=== PATIENT | male | born 1945 | race Caucasian/White ===

== ENCOUNTER 2024-07-31 17:12 | Inpatient (IN) | payer OTHER, MEDICARE ==
[2024-07-31 18:19] VITALS: BMI 22.1
[2024-07-31] MEDS ORDERED: Ondansetron PF 4 MG/2 ML Vial IVP PRN (21:03)
[2024-07-31 22:08] LABS: Troponin I 0.082 ng/mL (< 0.028)
[2024-07-31] MEDS: Aspirin Chewable 81 MG TAB PO SCH (22:24)
[2024-07-31] MEDS: cefTRIAXone\\ROCEPHIN 1 GM in Sodium Chloride 0.9% 100 ML IVPB SCH (22:24)
[2024-07-31] MEDS: Sodium Chloride 0.9% 1,000 ML IV SCH (22:25)
[2024-07-31] MEDS: methylPREDNISolone Sod Succ 40 MG VIAL IVP SCH (22:26)
[2024-07-31] MEDS: Nicotine 14 MG PATCH TD SCH (22:26)
[2024-08-01] MEDS: Ipratropium/Albuterol 3 ML NEB NEB SCH (01:18)
[2024-08-01 01:34] LABS: Troponin I 0.082 ng/mL (< 0.028)
[2024-08-01 04:48] LABS: #Basophils Less than 0.03 10x3/uL (0.0-0.2); #Eosinophils Less than 0.03 10x3/uL (0.0-0.7); %Basophils 0.2 % (0.0-1.0); %Lymphocytes 8.7 % (21.0-51.0); %Monocytes 3.2 % (0.0-10.0); %Neutrophils 87.5 % (42.0-75.0); Hematocrit 36.8 % (42.0-52.0); Hemoglobin 12.5 g/dL (14.0-18.0); Mean Corpuscular Hemoglobin 32.1 pg (27.0-31.0); Mean Corpuscular Volume 94.4 fL (78.0-98.0); Mean Platelet Volume 10.2 fL (7.4-10.4); Platelet Count 129 10x3/uL (130-400); RBC Distribution Width 14.4 % (11.5-14.5)
[2024-08-01 05:13] LABS: Anion Gap 14 mmol/L (10-20); BUN (Urea Nitrogen) 17 mg/dL (8.4-25.7); Calc. Creatinine Clearance 47 mL/min (70-130); Calcium 7.9 mg/dL (7.8-10.44); Carbon Dioxide 19 mmol/L (23-31); Chloride 109 mmol/L (98-107); Estimated GFR 62; Glucose 185 mg/dL (83-110); Sodium 138 mmol/L (136-145)
[2024-08-01] MEDS: Enoxaparin 40 MG (0.4 mL) SYRINGE SC SCH (08:47)
[2024-08-01] MEDS: Famotidine 20 MG TAB PO SCH (08:48)
[2024-08-01] MEDS: Azithromycin 250 MG TAB PO SCH (08:48)
[2024-08-01] MEDS: Aspirin Chewable 81 MG TAB PO SCH (08:48)
[2024-08-01 14:16] VITALS: BMI 22.1
[2024-08-01] MEDS: Metoprolol Tartrate 25 MG TAB PO SCH (20:52)
[2024-08-01] MEDS: Atorvastatin Calcium 40 MG TAB PO SCH (20:52)
[2024-08-02] MEDS: Lisinopril 2.5 MG TAB PO SCH (08:24)
[2024-08-02 08:48] LABS: #Basophils Less than 0.03 10x3/uL (0.0-0.2); #Eosinophils Less than 0.03 10x3/uL (0.0-0.7); %Basophils 0.1 % (0.0-1.0); %Lymphocytes 3.1 % (21.0-51.0); %Monocytes 4.4 % (0.0-10.0); Hematocrit 39.1 % (42.0-52.0); Mean Corpuscular HGB CONC 33.2 g/dL (32.0-36.0); Mean Corpuscular Hemoglobin 31.3 pg (27.0-31.0); Mean Platelet Volume 10.9 fL (7.4-10.4); Platelet Count 155 10x3/uL (130-400); Red Blood Cell (RBC) Count 4.16 mill/uL (4.70-6.10)
[2024-08-02 09:10] LABS: Anion Gap 15 mmol/L (10-20); BUN (Urea Nitrogen) 19 mg/dL (8.4-25.7); Calc. Creatinine Clearance 52 mL/min (70-130); Calcium 8.5 mg/dL (7.8-10.44); Carbon Dioxide 22 mmol/L (23-31); Chloride 108 mmol/L (98-107); Cholesterol 133 mg/dl (< 200 Desired); Estimated GFR 71; Glucose 138 mg/dL (83-110); HDL Cholesterol 44 mg/dL (>60 Neg Risk); LDL Cholesterol, Calculated 72 mg/dL; Potassium 3.6 mmol/L (3.5-5.1); Sodium 141 mmol/L (136-145); Triglycerides 84 mg/dL (Less than 150)
[2024-08-02] MEDS: Ipratropium/Albuterol 3 ML NEB EZPAP PRN (11:47)
[2024-08-02] MEDS ORDERED: Sodium Chloride 0.9% 1,000 ML IV SCH (14:00)
[2024-08-02] MEDS ORDERED: Metoprolol Tartrate 25 MG TAB PO SCH (21:00)
[2024-08-02] MEDS: Atorvastatin Calcium 20 MG TAB PO SCH (21:19)
[2024-08-03 05:22] LABS: #Basophils Less than 0.03 10x3/uL (0.0-0.2); #Eosinophils Less than 0.03 10x3/uL (0.0-0.7); %Lymphocytes 2.9 % (21.0-51.0); %Monocytes 3.8 % (0.0-10.0); %Neutrophils 92.4 % (42.0-75.0); Hematocrit 36.2 % (42.0-52.0); Hemoglobin 12.2 g/dL (14.0-18.0); Mean Corpuscular HGB CONC 33.7 g/dL (32.0-36.0); Mean Corpuscular Hemoglobin 31.9 pg (27.0-31.0); Mean Corpuscular Volume 94.8 fL (78.0-98.0); Mean Platelet Volume 10.6 fL (7.4-10.4); Platelet Count 135 10x3/uL (130-400); RBC Distribution Width 15.1 % (11.5-14.5); Red Blood Cell (RBC) Count 3.82 mill/uL (4.70-6.10)
[2024-08-03 05:49] LABS: Anion Gap 13 mmol/L (10-20); BUN (Urea Nitrogen) 18 mg/dL (8.4-25.7); Calc. Creatinine Clearance 69 mL/min (70-130); Calcium 8.1 mg/dL (7.8-10.44); Carbon Dioxide 20 mmol/L (23-31); Chloride 111 mmol/L (98-107); Estimated GFR 90; Glucose 133 mg/dL (83-110); Magnesium 1.9 mg/dL (1.6-2.6); Potassium 3.3 mmol/L (3.5-5.1); Sodium 141 mmol/L (136-145)
[2024-08-03] MEDS ORDERED: Communication Order-Pharmacy FS SCH (06:00)
[2024-08-03] MEDS ORDERED: Electrolyte Replacement Protocol 1 EACH FS PRN (08:54)
[2024-08-03] MEDS ORDERED: Electrolyte Replacement Protocol FS PRN (09:00)
[2024-08-03] MEDS: Potassium Bicarbonate/Cit Ac 20 MEQ TAB PO SCH (11:50)
[2024-08-03] MEDS: cefTRIAXone\\ROCEPHIN 1 GM in Sodium Chloride 0.9% 100 ML IVPB SCH (11:51)
[2024-08-03] MEDS: Azithromycin 500 MG in Sodium Chloride 0.9% 250 ML 250 ML IVPB SCH (11:51)
[2024-08-03] MEDS: Magnesium 2 GM/50 ML(in water) 2 GM in Premix 1 BAG IVPB SCH (12:02)
[2024-08-03] MEDS: Furosemide 40 MG (4 mL) VIAL SLOW IVP SCH (14:01)
[2024-08-03] MEDS: Enoxaparin 40 MG (0.4 mL) SYRINGE SC SCH (14:02)
[2024-08-03] MEDS: Spironolactone 25 MG TAB PO SCH (14:02)
[2024-08-03] MEDS: Empagliflozin 10 MG TAB PO SCH (14:03)
[2024-08-03 14:29] LABS: Potassium 4.2 mmol/L (3.5-5.1)
[2024-08-03] MEDS: Potassium Chloride 20 MEQ TAB PO SCH (17:38)
[2024-08-03] MEDS: methylPREDNISolone Sod Succ 40 MG VIAL IVP SCH (17:38)
[2024-08-04 05:10] LABS: Anion Gap 11 mmol/L (10-20); BUN (Urea Nitrogen) 25 mg/dL (8.4-25.7); Calc. Creatinine Clearance 56 mL/min (70-130); Calcium 8.5 mg/dL (7.8-10.44); Carbon Dioxide 26 mmol/L (23-31); Chloride 105 mmol/L (98-107); Estimated GFR 77; Glucose 133 mg/dL (83-110); Magnesium 2.3 mg/dL (1.6-2.6); Potassium 3.9 mmol/L (3.5-5.1); Sodium 138 mmol/L (136-145)
[2024-08-04] MEDS ORDERED: Acetaminophen 325 MG TAB PO PRN (05:12)
[2024-08-04] MEDS: Furosemide 40 MG (4 mL) VIAL SLOW IVP SCH (05:26)
[2024-08-04] MEDS: Acetaminophen 500 MG TAB PO SCH (05:27)
[2024-08-04] MEDS ORDERED: Communication Order-Pharmacy FS SCH (09:00)
[2024-08-04] MEDS ORDERED: Enoxaparin 40 MG (0.4 mL) SYRINGE SC SCH (09:00)
[2024-08-04] MEDS: Spironolactone 25 MG TAB PO SCH (09:20)
[2024-08-04] MEDS: Empagliflozin 10 MG TAB PO SCH (09:20)
[2024-08-04] MEDS: Enoxaparin 60 MG (0.6 mL) SYRINGE SC SCH (09:27)
[2024-08-04] MEDS: Lisinopril 2.5 MG TAB PO SCH (09:32)
[2024-08-04] MEDS: Furosemide 20 MG (2 mL) VIAL SLOW IVP SCH (14:43)
[2024-08-05 04:44] LABS: #Basophils Less than 0.03 10x3/uL (0.0-0.2); #Eosinophils Less than 0.03 10x3/uL (0.0-0.7); %Basophils 0.1 % (0.0-1.0); %Lymphocytes 4.4 % (21.0-51.0); %Monocytes 5.5 % (0.0-10.0); %Neutrophils 89.1 % (42.0-75.0); Hematocrit 42.5 % (42.0-52.0); Hemoglobin 14.5 g/dL (14.0-18.0); Mean Corpuscular HGB CONC 34.1 g/dL (32.0-36.0); Mean Corpuscular Hemoglobin 31.8 pg (27.0-31.0); Mean Corpuscular Volume 93.2 fL (78.0-98.0); Mean Platelet Volume 11.6 fL (7.4-10.4); Platelet Count 142 10x3/uL (130-400); RBC Distribution Width 14.9 % (11.5-14.5); Red Blood Cell (RBC) Count 4.56 mill/uL (4.70-6.10)
[2024-08-05 04:47] LABS: Anion Gap 14 mmol/L (10-20); BUN (Urea Nitrogen) 32 mg/dL (8.4-25.7); Calc. Creatinine Clearance 61 mL/min (70-130); Calcium 8.2 mg/dL (7.8-10.44); Carbon Dioxide 24 mmol/L (23-31); Chloride 104 mmol/L (98-107); Estimated GFR 86; Glucose 119 mg/dL (83-110); Potassium 3.5 mmol/L (3.5-5.1); Sodium 138 mmol/L (136-145)
[2024-08-05] MEDS: Potassium Chloride 20 MEQ TAB PO SCH ×2 (10:31)
[2024-08-06 04:44] LABS: #Basophils 0.03 10x3/uL (0.0-0.2); #Eosinophils Less than 0.03 10x3/uL (0.0-0.7); %Basophils 0.2 % (0.0-1.0); %Lymphocytes 5.4 % (21.0-51.0); %Monocytes 6.3 % (0.0-10.0); %Neutrophils 87.6 % (42.0-75.0); Hematocrit 45.5 % (42.0-52.0); Hemoglobin 15.6 g/dL (14.0-18.0); Mean Corpuscular HGB CONC 34.3 g/dL (32.0-36.0); Mean Corpuscular Hemoglobin 31.8 pg (27.0-31.0); Mean Corpuscular Volume 92.9 fL (78.0-98.0); Mean Platelet Volume 10.6 fL (7.4-10.4); Platelet Count 153 10x3/uL (130-400); RBC Distribution Width 14.7 % (11.5-14.5)
[2024-08-06 04:50] LABS: Anion Gap 13 mmol/L (10-20); BUN (Urea Nitrogen) 32 mg/dL (8.4-25.7); Calc. Creatinine Clearance 54 mL/min (70-130); Calcium 8.3 mg/dL (7.8-10.44); Carbon Dioxide 26 mmol/L (23-31); Chloride 102 mmol/L (98-107); Estimated GFR 73; Glucose 118 mg/dL (83-110); Potassium 3.8 mmol/L (3.5-5.1); Sodium 137 mmol/L (136-145)
[2024-08-07 04:51] LABS: #Basophils 0.03 10x3/uL (0.0-0.2); %Basophils 0.2 % (0.0-1.0); %Eosinophils 0.4 % (0.0-10.0); %Lymphocytes 12.9 % (21.0-51.0); %Monocytes 9.9 % (0.0-10.0); %Neutrophils 75.9 % (42.0-75.0); Hematocrit 49.4 % (42.0-52.0); Hemoglobin 16.7 g/dL (14.0-18.0); Mean Corpuscular HGB CONC 33.8 g/dL (32.0-36.0); Mean Corpuscular Hemoglobin 31.2 pg (27.0-31.0); Mean Corpuscular Volume 92.3 fL (78.0-98.0); Mean Platelet Volume 10.7 fL (7.4-10.4); Platelet Count 155 10x3/uL (130-400); RBC Distribution Width 14.6 % (11.5-14.5); Red Blood Cell (RBC) Count 5.35 mill/uL (4.70-6.10)
[2024-08-07 05:07] LABS: Anion Gap 14 mmol/L (10-20); BUN (Urea Nitrogen) 34 mg/dL (8.4-25.7); Calc. Creatinine Clearance 68 mL/min (70-130); Calcium 8.3 mg/dL (7.8-10.44); Carbon Dioxide 23 mmol/L (23-31); Chloride 105 mmol/L (98-107); Estimated GFR 90; Glucose 86 mg/dL (83-110); Sodium 138 mmol/L (136-145)
[2024-08-07] MEDS: methylPREDNISolone Sod Succ 40 MG VIAL IVP SCH (05:26)
[2024-08-07] MEDS: Sodium Chloride 0.9% 1,000 ML IV SCH (05:27)
[2024-08-07] MEDS ORDERED: Nitroglycerin 50 MG/250 ML BOT 0 ML ONE (07:07)
[2024-08-07] MEDS ORDERED: EPINEPHrine 1 MG/10 ML Abboject SYRINGE ONE (07:07)
[2024-08-07] MEDS ORDERED: Midazolam HCl 2 mg/2 ml Vial ONE (07:07)
[2024-08-07] MEDS ORDERED: PHENYLEPHRINE-NS 100 MCG/ML 10 ML SYRINGE ONE (07:07)
[2024-08-07] MEDS ORDERED: fentaNYL 50 mcg/mL 1 mL Vial ONE (07:07)
[2024-08-07] MEDS ORDERED: Atropine Sulfate 1 mg/10 ml Syringe ONE (07:07)
[2024-08-07] MEDS ORDERED: Heparin 10,000 UNITS/ 10 ML VIAL ONE (07:07)
[2024-08-07] MEDS ORDERED: Sodium Chloride 0.9% 200 ML IV PRN (09:24)
[2024-08-07] MEDS ORDERED: Nitroglycerin 0.4 MG TAB (25 Tab Bottle) SL PRN (09:24)
[2024-08-07] MEDS ORDERED: Iopamidol 370 76% 100 ML VIAL ONE ×2 (10:50→10:57)
[2024-08-07] MEDS ORDERED: Iopamidol-370 76% 500 ML MDV (1 ML CHARGE) ONE (11:16)
[2024-08-07] MEDS: Amiodarone 450 MG in Dextrose 5% in Water 250 ML IVPB SCH (22:15)
[2024-08-08 04:50] LABS: #Basophils 0.03 10x3/uL (0.0-0.2); #Eosinophils Less than 0.03 10x3/uL (0.0-0.7); %Basophils 0.2 % (0.0-1.0); %Eosinophils 0.1 % (0.0-10.0); %Lymphocytes 12.9 % (21.0-51.0); %Monocytes 10.6 % (0.0-10.0); %Neutrophils 75.4 % (42.0-75.0); Hematocrit 48.3 % (42.0-52.0); Hemoglobin 16.6 g/dL (14.0-18.0); Mean Corpuscular HGB CONC 34.4 g/dL (32.0-36.0); Mean Corpuscular Hemoglobin 31.3 pg (27.0-31.0); Mean Platelet Volume 10.9 fL (7.4-10.4); Platelet Count 171 10x3/uL (130-400); RBC Distribution Width 14.7 % (11.5-14.5); Red Blood Cell (RBC) Count 5.31 mill/uL (4.70-6.10)
[2024-08-08] MEDS: Tamsulosin HCl 0.4 MG CAP PO SCH (10:59)
[2024-08-09 08:44] LABS: #Basophils Less than 0.03 10x3/uL (0.0-0.2); %Basophils 0.1 % (0.0-1.0); %Eosinophils 0.4 % (0.0-10.0); %Lymphocytes 16.7 % (21.0-51.0); %Monocytes 10.9 % (0.0-10.0); %Neutrophils 70.9 % (42.0-75.0); Hematocrit 47.8 % (42.0-52.0); Hemoglobin 16.2 g/dL (14.0-18.0); Mean Corpuscular HGB CONC 33.9 g/dL (32.0-36.0); Mean Corpuscular Hemoglobin 31.8 pg (27.0-31.0); Mean Corpuscular Volume 93.9 fL (78.0-98.0); Mean Platelet Volume 10.4 fL (7.4-10.4); Platelet Count 139 10x3/uL (130-400); RBC Distribution Width 14.2 % (11.5-14.5); Red Blood Cell (RBC) Count 5.09 mill/uL (4.70-6.10)
[2024-08-09 08:52] LABS: Anion Gap 9 mmol/L (10-20); BUN (Urea Nitrogen) 27 mg/dL (8.4-25.7); Calc. Creatinine Clearance 68 mL/min (70-130); Calcium 8.4 mg/dL (7.8-10.44); Carbon Dioxide 28 mmol/L (23-31); Chloride 105 mmol/L (98-107); Estimated GFR 90; Glucose 94 mg/dL (83-110); Magnesium 2.1 mg/dL (1.6-2.6); Potassium 4.2 mmol/L (3.5-5.1); Sodium 138 mmol/L (136-145)
[2024-08-09] MEDS: Furosemide 20 MG (2 mL) VIAL SLOW IVP SCH (09:54)
[2024-08-09] MEDS: Tamsulosin HCl 0.4 MG CAP PO SCH (09:55)
[2024-08-09] MEDS: Apixaban 5 MG TAB PO SCH (20:42)
[2024-08-10 05:15] LABS: Calc. Creatinine Clearance 57 mL/min (70-130); Estimated GFR 79
[2024-08-10 05:17] LABS: Anion Gap 11 mmol/L (10-20); BUN (Urea Nitrogen) 29 mg/dL (8.4-25.7); Calcium 8.5 mg/dL (7.8-10.44); Carbon Dioxide 28 mmol/L (23-31); Chloride 102 mmol/L (98-107); Glucose 87 mg/dL (83-110); Potassium 3.9 mmol/L (3.5-5.1); Sodium 137 mmol/L (136-145)
[2024-08-10 08:37] LABS: Hematocrit 48.9 % (42.0-52.0); Hemoglobin 16.2 g/dL (14.0-18.0); Mean Corpuscular HGB CONC 33.1 g/dL (32.0-36.0); Mean Corpuscular Hemoglobin 31.4 pg (27.0-31.0); Mean Corpuscular Volume 94.8 fL (78.0-98.0); Platelet Count 131 10x3/uL (130-400); RBC Distribution Width 14.3 % (11.5-14.5); Red Blood Cell (RBC) Count 5.16 mill/uL (4.70-6.10)
[2024-08-10] MEDS: Magnesium 2 GM/50 ML(in water) 2 GM in Premix 1 BAG IVPB SCH (10:11)
[2024-08-10] MEDS: Metoprolol Tartrate 5 MG (5 mL) VIAL IVP SCH (17:53)
[2024-08-11 05:17] LABS: Anion Gap 11 mmol/L (10-20); BUN (Urea Nitrogen) 28 mg/dL (8.4-25.7); Calc. Creatinine Clearance 62 mL/min (70-130); Calcium 8.3 mg/dL (7.8-10.44); Carbon Dioxide 21 mmol/L (23-31); Chloride 105 mmol/L (98-107); Estimated GFR 88; Glucose 88 mg/dL (83-110); Magnesium 2.1 mg/dL (1.6-2.6); Potassium 3.9 mmol/L (3.5-5.1); Sodium 133 mmol/L (136-145)
[2024-08-11] MEDS ORDERED: fentaNYL 50 mcg/mL 1 mL Vial ONE (08:14)
[2024-08-11] MEDS ORDERED: PROPOFOL 200 MG/20 ML VIAL ONE (08:29)
[2024-08-11] MEDS ORDERED: KETAMINE 100 MG/ML (5ML VIAL) ONE (08:33)
[2024-08-11] MEDS ORDERED: Midazolam HCl 2 mg/2 ml Vial ONE (08:33)
[2024-08-11 11:30] LABS: Hematocrit 46.2 % (42.0-52.0); Hemoglobin 15.3 g/dL (14.0-18.0); Mean Corpuscular HGB CONC 33.1 g/dL (32.0-36.0); Mean Corpuscular Hemoglobin 31.5 pg (27.0-31.0); Mean Corpuscular Volume 95.1 fL (78.0-98.0); Mean Platelet Volume 10.5 fL (7.4-10.4); Platelet Count 121 10x3/uL (130-400); RBC Distribution Width 14.1 % (11.5-14.5); Red Blood Cell (RBC) Count 4.86 mill/uL (4.70-6.10)
[2024-08-11] MEDS: Amiodarone 200 MG TAB PO SCH (21:10)
[2024-08-12 05:31] LABS: Anion Gap 10 mmol/L (10-20); BUN (Urea Nitrogen) 29 mg/dL (8.4-25.7); Calc. Creatinine Clearance 49 mL/min (70-130); Calcium 8.7 mg/dL (7.8-10.44); Carbon Dioxide 27 mmol/L (23-31); Chloride 100 mmol/L (98-107); Estimated GFR 66; Glucose 87 mg/dL (83-110); Magnesium 2.1 mg/dL (1.6-2.6); Potassium 4.7 mmol/L (3.5-5.1); Sodium 132 mmol/L (136-145)
[2024-08-12 08:57] LABS: Hematocrit 59.6 % (42.0-52.0); Hemoglobin 19.7 g/dL (14.0-18.0); Mean Corpuscular HGB CONC 32.7 g/dL (32.0-36.0); Mean Corpuscular Hemoglobin 31.7 pg (27.0-31.0); Mean Corpuscular Volume 96.9 fL (78.0-98.0); Mean Platelet Volume 12.3 fL (7.4-10.4); Platelet Count 89 10x3/uL (130-400); RBC Distribution Width 16.1 % (11.5-14.5); Red Blood Cell (RBC) Count 6.21 mill/uL (4.70-6.10)
[2024-08-13 04:03] LABS: Anion Gap 14 mmol/L (10-20); BUN (Urea Nitrogen) 28 mg/dL (8.4-25.7); Calc. Creatinine Clearance 51 mL/min (70-130); Calcium 8.6 mg/dL (7.8-10.44); Carbon Dioxide 22 mmol/L (23-31); Chloride 102 mmol/L (98-107); Estimated GFR 68; Glucose 93 mg/dL (83-110); Magnesium 1.8 mg/dL (1.6-2.6); Potassium 4.4 mmol/L (3.5-5.1); Sodium 134 mmol/L (136-145)
[2024-08-13] MEDS: Furosemide 20 MG TAB PO SCH (08:07)
[2024-08-13] MEDS: Magnesium 2 GM/50 ML(in water) 2 GM in Premix 1 BAG IVPB SCH (08:07)
[2024-08-13 10:07] LABS: Hematocrit 44.7 % (42.0-52.0); Mean Corpuscular HGB CONC 33.6 g/dL (32.0-36.0); Mean Corpuscular Hemoglobin 31.8 pg (27.0-31.0); Mean Corpuscular Volume 94.7 fL (78.0-98.0); Platelet Count 126 10x3/uL (130-400); RBC Distribution Width 13.7 % (11.5-14.5); Red Blood Cell (RBC) Count 4.72 mill/uL (4.70-6.10)
[2024-08-13 16:13] VITALS: BP 122/68; TEMP 97.8
== END 2024-08-13 17:10 | disposition home or self-care (01) | DRG 280 ==
LOC: 2NO 17:48
PROVIDERS: ADMIT Internal Medicine; ATTEND Internal Medicine
PROC: 4A023N7 Measurement of Cardiac Sampling and Pressure, Left Heart, Percutaneous Approach (ICD-10-PCS; principal; 2024-08-07)
PROC: B2111ZZ Fluoroscopy of Multiple Coronary Arteries using Low Osmolar Contrast (ICD-10-PCS; 2024-08-07)
PROC: B245ZZ4 Ultrasonography of Left Heart, Transesophageal (ICD-10-PCS; 2024-08-11)
PROC: 5A2204Z Restoration of Cardiac Rhythm, Single (ICD-10-PCS; 2024-08-11)
DX: I48.0 Paroxysmal atrial fibrillation (principal); I50.21 Acute systolic (congestive) heart failure; I21.A1 Myocardial infarction type 2; J96.01 Acute respiratory failure with hypoxia; J15.69 Pneumonia due to other Gram-negative bacteria; J44.1 Chronic obstructive pulmonary disease with (acute) exacerbation; J44.0 Chronic obstructive pulmonary disease with (acute) lower respiratory infection; E87.1 Hypo-osmolality and hyponatremia; E87.20 Acidosis, unspecified; I48.92 Unspecified atrial flutter; Z72.0 Tobacco use; I11.0 Hypertensive heart disease with heart failure; N40.1 Benign prostatic hyperplasia with lower urinary tract symptoms; R33.9 Retention of urine, unspecified; I42.8 Other cardiomyopathies; I34.0 Nonrheumatic mitral (valve) insufficiency; N18.2 Chronic kidney disease, stage 2 (mild); E87.6 Hypokalemia; E83.42 Hypomagnesemia; Z79.899 Other long term (current) drug therapy
CPT/HCPCS: 36415; 71045; 71275; 74174; 80048; 80053; 80061; 81001; 83605; 83735; 83880; 84145; 84484; 85025; 85027; 85379; 86141; 87040; 87086; 87428; 92950; 92960; 93005; 93306; 93312; 93454; 93798; 94640; 94760; 96372; 96374; 96375; 96376; 97139; 99152; C1769; C1887; C1894; J0171; J0282; J0456; J0461; J0696; J1100; J1160; J1644; J1650; J1940; J1956; J2250; J2704; J2919; J3010; J3475; J7030; J7050; J7070; J7611; J7620; Q9967